=== PATIENT | female | born 1955 | race Caucasian/White ===

== ENCOUNTER → 2016-08-12 | Outpatient (CLI) | payer BC, SELFPAY | LOC: KOH-I 09:08 | DX: R07.9 Chest pain, unspecified (principal); Z88.5 Allergy status to narcotic agent | CPT/HCPCS: 71101 ==

== ENCOUNTER → 2016-08-13 | Outpatient (CLI) | payer BC | LOC: CARD REHAB 14:23 | DX: J84.9 Interstitial pulmonary disease, unspecified (principal) ==

== ENCOUNTER → 2016-10-18 | Outpatient (CLI) | payer BC | LOC: HEART 5 07:20 | DX: R07.9 Chest pain, unspecified (principal); R06.02 Shortness of breath; I51.9 Heart disease, unspecified; I08.3 Combined rheumatic disorders of mitral, aortic and tricuspid valves | CPT/HCPCS: 78452; 93306; A9502; J2785 ==

== ENCOUNTER → 2020-06-18 | Outpatient (CLI) | payer MEDICARE, OTHER ==
[~2020-06-18] MED LIST: CALCIUM 600 +1 EA10 PO; FLUTICASONE SPRAY; HYDROCHLOROTH12.5 MG PO; IBANDRONATE IV; KEFLEX CAP 500500 MG PO; MECLIZINE HCL25 MG PO; MIACALCIN 2200 IU/ML; OFEV100 MG PO; PROTONIX40 MG PO; SYMBICORT 16010.2 GM INH; TESSALON PERLE100 MG PO; TYLENOL325 MG PO; VENTOLIN HFA 66.7 GM INH; VITAMIN C500 M4 PO; VITAMIN D325 MC6 PO
== END ==
LOC: MAMO 05-15 11:30
DX: Z12.31 Encounter for screening mammogram for malignant neoplasm of breast (principal); Z90.710 Acquired absence of both cervix and uterus
CPT/HCPCS: 77063; 77067

== ENCOUNTER → 2020-07-11 | Outpatient (CLI) | payer MEDICARE, OTHER | LOC: LAB 15:30 | DX: Z51.81 Encounter for therapeutic drug level monitoring (principal); Z79.899 Other long term (current) drug therapy | CPT/HCPCS: 36415; 80076 ==

== ENCOUNTER → 2020-08-07 | Outpatient (CLI) | payer MEDICARE, OTHER | LOC: LAB 10:30 | DX: Z79.899 Other long term (current) drug therapy (principal) | CPT/HCPCS: 36415; 80076 ==

== ENCOUNTER → 2020-09-08 | Outpatient (CLI) | payer MEDICARE, OTHER | LOC: LAB 11:23 | DX: Z79.899 Other long term (current) drug therapy (principal) | CPT/HCPCS: 36415; 80076 ==

== ENCOUNTER → 2020-10-06 | Outpatient (CLI) | payer MEDICARE, OTHER | LOC: LAB 12:28 | DX: Z51.81 Encounter for therapeutic drug level monitoring (principal); Z79.899 Other long term (current) drug therapy | CPT/HCPCS: 36415; 80076 ==

== ENCOUNTER → 2021-01-06 | Outpatient (CLI) | payer MEDICARE, OTHER | LOC: LAB 12:41 | DX: Z79.899 Other long term (current) drug therapy (principal) | CPT/HCPCS: 36415; 80076 ==

== ENCOUNTER → 2021-03-25 | Outpatient (CLI) | payer MEDICARE, OTHER | LOC: KOH-I 15:49 | DX: M47.26 Other spondylosis with radiculopathy, lumbar region (principal) | CPT/HCPCS: 72100 ==

== ENCOUNTER → 2021-10-20 | Outpatient (CLI) | payer MEDICARE, OTHER ==
[2021-10-20 15:46] LABS: BUN/CREATININE RATIO 20 (0-10)
== END ==
LOC: LAB 14:06
PROVIDERS: Allergy & Immunology Allergy
DX: Z79.899 Other long term (current) drug therapy (principal)
CPT/HCPCS: 36415; 80053

== ENCOUNTER → 2022-03-04 | Outpatient (CLI) | payer MEDICARE, OTHER ==
[2022-03-04 14:20] LABS: BUN/CREATININE RATIO 39 (0-10)
== END ==
LOC: LAB 13:43
PROVIDERS: Allergy & Immunology Allergy
DX: Z79.899 Other long term (current) drug therapy (principal)
CPT/HCPCS: 36415; 80053